=== PATIENT | male | born 1985 | race Caucasian/White ===

== ENCOUNTER → 2017-10-20 | Outpatient (CLI) | payer OTHER ==
[~2017-10-20] MED LIST: ACYC-50 PO; NO ROUTINE MEDS; ONDA4TAB PO; PRE20 PO
--- NOTE | 2017-10-20 13:42 | RADIOLOGY IMAGING REPORT ---
[facility] PATIENT NAME: Man Rodriguez : 1985 MR: [id number] V: [id number] EXAM DATE: ORDERING PHYSICIAN: CHANDA COSTELLO TECHNOLOGIST: Location: [facility] [place] Patient: Man Rodriguez : 1985 Visit/Account:[id number] Date of Sevice: 10/20/2017 TESTICULAR HISTORY: Lump in left scrotum COMPARISON: None. FINDINGS: Testes: The right testicle measures 4.2 x 2.1 x 3.1 cm the left testicle measures 4.3 x 2.2 x 2.7 cm. Symmetric and unremarkable blood flow documented by color and Duplex Doppler ultrasound. Epididymides: The head of the epididymis on the right measures 1.3 cm. There is a 1.3 cm cyst in the head epididymis on the right. The head epididymis on the left measures 1.4 cm Blood flow is unrema rkable in each epididymis by color Doppler ultrasound. There is a 2.7 mm echogenic structure within the mid right testicle possibly a calcification. Also noted is a 1.6 mm echogenic structure inferior left testicle represent an additional calcification. Hydrocele: None. Varicocele: Images were taken over the anterior left scrotum in location of patient's palpable findings. There w as a very subtle 2.4 mm hypoechoic structure in this location which may represent a skin lesion. IMPRESSION: Very subtle 2.4 mm hypoechoic structure along the anterior wall of the left scrotum in location of pa tient's palpable findings which may represent a skin lesion Small calcification seen in both testes 1.3 cm cyst had epididymis on the right Report Dictated By: Liana Manning MD at 10/20/2017 1:33 PM Report E-Signed By: Liana Manning MD at 10/20/2017 1:36 PM WSN:[email or web address]
== END ==
LOC: US 01:11
PROVIDERS: ATTEND Urology
DX: N50.3 Cyst of epididymis (principal); N50.89 Other specified disorders of the male genital organs
CPT/HCPCS: 76870

== ENCOUNTER 2017-11-01 02:49 | Day surgery (SDC) | payer OTHER ==
[~2017-11-01] VITALS: Ht 177.8 cm; Wt 93.9 kg
[2017-11-01] MEDS ORDERED: DEXAMETHASONE SOD PHOS 10MG/ML ONE (06:35)
[2017-11-01] MEDS ORDERED: LIDOCAINE MPF 1% 5 ML VIAL ONE (06:35)
[2017-11-01] MEDS ORDERED: PROPOFOL EMUL(*) 10MG/ML 20 ML 20 ML ONE ×2 (06:35→08:34)
[2017-11-01] MEDS ORDERED: METOCLOPRAMIDE 10 MG/2 ML SDV ONE (06:35)
[2017-11-01] MEDS ORDERED: ONDANSETRON 4 MG/2 ML VIAL ONE (06:35)
[2017-11-01] MEDS ORDERED: fentaNYL CITR 100 MCG/2 ML AMP ONE ×2 (06:37→09:07)
[2017-11-01 07:17] VITALS: BP 122/77
[2017-11-01] MEDS ORDERED: ceFAZolin(*) 2GM/D5W 50ML 50 ML IVPB ONE (07:40)
[2017-11-01] MEDS ORDERED: NORMOSOL R SOLN(*) 1000 ML BAG 1,000 ML IV PRN (08:15)
[2017-11-01] MEDS ORDERED: LIDOCAINE/SOD BICARB 8.4% SYR ID ONE (08:15)
[2017-11-01] MEDS ORDERED: MIDAZOLAM 2 MG/2 ML VIAL IVP PRN (08:15)
[2017-11-01] MEDS ORDERED: FAMOTIDINE 20 MG TAB PO ONE (08:15)
[2017-11-01] MEDS ORDERED: ROCURONIUM BROM 10 MG/ML 10 ML ONE (08:35)
[2017-11-01] MEDS ORDERED: AMOX500T10 PO (09:08)
[2017-11-01] MEDS ORDERED: OXYC-865 PO (09:10)
[2017-11-01] MEDS ORDERED: ONDA4TAB PO (09:11)
[2017-11-01] MEDS ORDERED: LIDOCAINE 2% VISCOUS PO (09:28)
[2017-11-01 09:42] VITALS: BP 121/77
--- NOTE | 2017-11-01 09:50 | OPERATIVE REPORT 1 ---
EVENT DATE: November 01, 2017 SURGEON: Bryan Rubio MD ANESTHESIOLOGIST: Juan Alberto Hernandes MD ANESTHESIA: LMA PROCEDURE Tonsillectomy. PREOPERATIVE DIAGNOSIS Tonsillar hypertrophy. POSTOPERATIVE DIAGNOSIS Tonsillar hypertrophy. INDICATIONS Please refer to the preoperative note. DESCRIPTION OF PROCEDURE The patient was positively identified in the preoperative area. He was accompanied there by his . Risks were again explained, including but not limited to, bleeding, infection, and those associated with anesthesia. He acknowledged understanding of those risks. He was then brought back to the operative suite, laid supine on the operative table, and anesthesia was administered. Once asleep, the patient was positioned, then prepped and draped in usual sterile fashion. A McIvor mouth gag was placed in the patient's oral cavity. Red rubber catheter was placed through the right nostril and utilized to suspend the soft palate. The patient was noted to have 3+ tonsils. The right tonsil was grasped with a curved Allis forceps and carefully dissected from the lateral pharyngeal wall with Bovie electrocautery. In a similar fashion, the contralateral tonsil was removed. Hemostasis was then obtained with suction Bovie electrocautery. The patient was then turned to anesthesia for emergence. ESTIMATED BLOOD LOSS 25 mL. COMPLICATIONS No complications. MTDD
[2017-11-01 09:58] VITALS: BP 137/81
[2017-11-01 10:00] VITALS: BP 123/85
[2017-11-02] MEDS ORDERED: METH4TAB66 PO (10:21)
[2017-11-02] MEDS ORDERED: METH125V13 IM (10:32)
== END 2017-11-01 09:42 | disposition home or self-care (01) ==
LOC: OR 02:49
PROVIDERS: ATTEND Otolaryngology
DX: J35.1 Hypertrophy of tonsils (principal)
CPT/HCPCS: 42826; 88304; J1100; J2001; J2405; J2704; J2765; J3010; J0690

== ENCOUNTER 2018-10-04 04:27 | Emergency (ER) | payer OTHER ==
[~2018-10-04 04:27] MED LIST changes: +AMOX500T10 PO; +LIDOCAINE 2% VISCOUS PO; +METH125V13 IM; +METH4TAB66 PO; +OXYC-865 PO
--- NOTE | 2018-10-04 04:35 | ER Report ---
History and Physical Time Seen By MD: 04:35 HPI/ROS CHIEF COMPLAINT: Right flank and groin pain HISTORY OF PRESENT ILLNESS: This is a 33-year-old male. He started having pain tonight and the right flank that then moved into the right groin. Seem to come and go and is very severe. On arrival in the ER the pain is now gone. No fevers or chills. No dysuria. Family history of kidney stones but he is never had a stone before. No problem with bowels. Allergies: Coded Allergies: No Known Drug Allergies (Verified , 10/22/17) Home Meds No Active Prescriptions or Reported Meds Reviewed Nurses Notes: Yes Hx Smoking: No Smoking Status: Never Smoker Hx Substance Use Disorder: No Hx Alcohol Use: No Constitutional Vital Sign - Last 24 Hours 10/04/18 10/04/18 10/04/18 10/04/18 04:33 04:42 05:07 05:12 Temp 97.8 Pulse 59 54 54 Resp 16 B/P (MAP) 138/101 117/87 (97) Pulse Ox 90 93 91 O2 Delivery Room Air 10/04/18 10/04/18 05:27 05:30 Pulse 53 B/P (MAP) 126/84 (98) Pulse Ox 96 Physical Exam General Appearance: The patient is alert. No acute distress. Eyes: Pupils are equal, round. No pallor, injection or icterus. ENT: Mucous membranes are moist. Respiratory: Breathing easily and unlabored. Cardiovascular: Regular rate and rhythm. Gastrointestinal: Abdomen is soft, no tenderness with palpation. Nondistended. No rebound or guarding. No costovertebral angle tenderness with percussion. Neurological: Alert and oriented x3. DIFFERENTIAL DIAGNOSIS: After history and physical exam, differential diagnosis was considered for patient with flank pain that sounds more like a kidney stone. Pain is now gone. Medical Decision Making Data Points Result Diagram: 10/04/189 10/04/18 0439 Laboratory Hematology Test 10/04/18 04:31 10/04/18 04:39 Urine Color Yellow Urine Clarity Slightly-cloudy Urine pH 5.0 pH (4.8-9.5) Urine Specific [place] 1.027 Urine Protein 30 mg/dL (NEGATIVE) Urine Glucose (UA) Negative mg/dL (NEGATIVE) Urine Ketones Negative mg/dL (NEGATIVE) Urine Blood Large (NEGATIVE) Urine Nitrite Negative (NEGATIVE) Urine Bilirubin Negative (NEGATIVE) Urine Urobilinogen Negative mg/dL (0.2-1.9) Urine Leukocyte Esterase Negative (NEGATIVE) Urine RBC 322 /HPF (0-2/HPF) Urine WBC 8 /HPF (0-5/HPF) Urine Squamous Epithelial Cells Few /LPF (</=FEW) Urine Transitional Epithelial Cells Few /LPF (NONE-FEW) Urine Calcium Oxalate Crystals Moderate /HPF (NONE) Urine Bacteria Negative /HPF (NONE-FEW) Urine Hyaline Casts Few /LPF (NONE-FEW) Urine Mucus Few /HPF (NONE-FEW) Red Blood Count 5.41 M/uL (4.00-5.60) Mean Corpuscular Volume 84.4 fL (80.0-96.0) Mean Corpuscular Hemoglobin 29.5 pg (26.0-33.0) Mean Corpuscular Hemoglobin Concent 35.0 g/dL (32.0-36.0) Red Cell Distribution Width 13.0 % (11.5-14.5) Mean Platelet Volume 10.1 fL (7.2-11.1) Neutrophils (%) (Auto) 59.6 % (39.4-72.5) Lymphocytes (%) (Auto) 31.9 % (17.6-49.6) Monocytes (%) (Auto) 6.7 % (4.1-12.4) Eosinophils (%) (Auto) 1.4 % (0.4-6.7) Basophils (%) (Auto) 0.4 % (0.3-1.4) Nucleated RBC Relative Count (auto) 0.1 /100WBC Neutrophils # (Auto) 3.5 K/uL (2.0-7.4) Lymphocytes # (Auto) 1.9 K/uL (1.3-3.6) Monocytes # (Auto) 0.4 K/uL (0.3-1.0) Eosinophils # (Auto) 0.1 K/uL (0.0-0.5) Basophils # (Auto) 0.0 K/uL (0.0-0.1) Nucleated RBC Absolute Count (auto) 0.00 K/uL Sodium Level 141 mmol/L (137-145) Potassium Level 3.7 mmol/L (3.5-5.0) Chloride Level 104 mmol/L (98-107) Carbon Dioxide Level 27 mmol/L (22-30) Blood Urea Nitrogen 15 mg/dl (9-21) Creatinine 1.40 mg/dl (0.66-1.25) Glomerular Filtration Rate Calc 58.4 Random Glucose 107 mg/dl (75-110) Calcium Level 9.2 mg/dl (8.4-10.2) Total Bilirubin 0.4 mg/dl (0.2-1.3) Aspartate Amino Transf (AST/SGOT) 29 U/L (0-35) Alanine Aminotransferase (ALT/SGPT) 36 U/L (0-56) Alkaline Phosphatase 77 U/L (0-126) Total Protein 7.8 g/dl (6.3-8.2) Albumin 4.8 g/dl (3.5-5.0) Chemistry Test 10/04/18 04:31 10/04/18 04:39 Urine Color Yellow Urine Clarity Slightly-cloudy Urine pH 5.0 pH (4.8-9.5) Urine Specific [place] 1.027 Urine Protein 30 mg/dL (NEGATIVE) Urine Glucose (UA) Negative mg/dL (NEGATIVE) Urine Ketones Negative mg/dL (NEGATIVE) Urine Blood Large (NEGATIVE) Urine Nitrite Negative (NEGATIVE) Urine Bilirubin Negative (NEGATIVE) Urine Urobilinogen Negative mg/dL (0.2-1.9) Urine Leukocyte Esterase Negative (NEGATIVE) Urine RBC 322 /HPF (0-2/HPF) Urine WBC 8 /HPF (0-5/HPF) Urine Squamous Epithelial Cells Few /LPF (</=FEW) Urine Transitional Epithelial Cells Few /LPF (NONE-FEW) Urine Calcium Oxalate Crystals Moderate /HPF (NONE) Urine Bacteria Negative /HPF (NONE-FEW) Urine Hyaline Casts Few /LPF (NONE-FEW) Urine Mucus Few /HPF (NONE-FEW) White Blood Count 5.9 k/uL (4.5-11.0) Red Blood Count 5.41 M/uL (4.00-5.60) Hemoglobin 16.0 g/dL (14.0-18.0) Hematocrit 45.6 % (42.0-52.0) Mean Corpuscular Volume 84.4 fL (80.0-96.0) Mean Corpuscular Hemoglobin 29.5 pg (26.0-33.0) Mean Corpuscular Hemoglobin Concent 35.0 g/dL (32.0-36.0) Red Cell Distribution Width 13.0 % (11.5-14.5) Platelet Count 176 K/uL (150-450) Mean Platelet Volume 10.1 fL (7.2-11.1) Neutrophils (%) (Auto) 59.6 % (39.4-72.5) Lymphocytes (%) (Auto) 31.9 % (17.6-49.6) Monocytes (%) (Auto) 6.7 % (4.1-12.4) Eosinophils (%) (Auto) 1.4 % (0.4-6.7) Basophils (%) (Auto) 0.4 % (0.3-1.4) Nucleated RBC Relative Count (auto) 0.1 /100WBC Neutrophils # (Auto) 3.5 K/uL (2.0-7.4) Lymphocytes # (Auto) 1.9 K/uL (1.3-3.6) Monocytes # (Auto) 0.4 K/uL (0.3-1.0) Eosinophils # (Auto) 0.1 K/uL (0.0-0.5) Basophils # (Auto) 0.0 K/uL (0.0-0.1) Nucleated RBC Absolute Count (auto) 0.00 K/uL Glomerular Filtration Rate Calc 58.4 Calcium Level 9.2 mg/dl (8.4-10.2) Total Bilirubin 0.4 mg/dl (0.2-1.3) Aspartate Amino Transf (AST/SGOT) 29 U/L (0-35) Alanine Aminotransferase (ALT/SGPT) 36 U/L (0-56) Alkaline Phosphatase 77 U/L (0-126) Total Protein 7.8 g/dl (6.3-8.2) Albumin 4.8 g/dl (3.5-5.0) Urinalysis Test 10/04/18 04:31 Urine Color Yellow Urine Clarity Slightly-cloudy Urine pH 5.0 pH (4.8-9.5) Urine Specific [place] 1.027 Urine Protein 30 mg/dL (NEGATIVE) Urine Glucose (UA) Negative mg/dL (NEGATIVE) Urine Ketones Negative mg/dL (NEGATIVE) Urine Blood Large (NEGATIVE) Urine Nitrite Negative (NEGATIVE) Urine Bilirubin Negative (NEGATIVE) Urine Urobilinogen Negative mg/dL (0.2-1.9) Urine Leukocyte Esterase Negative (NEGATIVE) Urine RBC 322 /HPF (0-2/HPF) Urine WBC 8 /HPF (0-5/HPF) Urine Squamous Epithelial Cells Few /LPF (</=FEW) Urine Transitional Epithelial Cells Few /LPF (NONE-FEW) Urine Calcium Oxalate Crystals Moderate /HPF (NONE) Urine Bacteria Negative /HPF (NONE-FEW) Urine Hyaline Casts Few /LPF (NONE-FEW) Urine Mucus Few /HPF (NONE-FEW) EKG/Imaging Imaging COMPUTED TOMOGRAPHY ABDOMEN AND PELVIS WITH INTRAVENOUS CONTRAST DATE OF EXAM: 10/04/2018 4:40 AM INDICATION: Right flank pain. COMPARISON: CT abdomen and pelvis 09/13/2011. TECHNIQUE: Contrast enhanced abdomen and pelvis CT performed during the injection of 75 ml of Isovue 370. Sagittal and coronal reconstructions were performed. One of the following dose optimization techniques was utilized in the performance of this exam: Automated exposure control; adjustment of the mA and/or kV according to the patient's size; or use of an iterative reconstruction technique. Specific details can be referenced in the facility's radiology CT exam operational policy. FINDINGS: Lung bases: Minimal atelectasis. Liver and hepatic vasculature: 5 mm hypoattenuating lesion in segment IVb likely represents a cyst. No acute abnormality or suspicious lesion. The right lobe is mildly enlarged, similar to prior. Gallbladder and bile ducts: Normal. Spleen: Mild hepatomegaly similar to prior. Pancreas: Normal. Adrenals: Normal. Kidneys, ureters and bladder: No acute abnormality or suspicious lesion. Retroperitoneum and aorta: Normal aorta. No adenopathy. Benign-appearing cystic lesion posterior to the left kidney measures 8.6 x 5.7 cm in the axial plane compared to approximately 6.5 x 4.6 cm on the prior exam. It measures simple fluid density and has no obvious enhancing components, septa or nodularity. It does not clearly arise from any of the adjacent solid organs. GI tract, mesentery and peritoneum: Moderate amount of stool in the colon. No evidence of obstruction. No pneumatosis, pneumoperitoneum or significant free fluid. Normal appendix. Prostate and seminal vesicles: Normal. Bones and soft tissues: No acute abnormality or suspicious lesion. Small fat- containing umbilical hernia. IMPRESSION: 1. Moderate amount of stool in the colon, question constipation. 2. Simple appearing cystic structure posterior to the left kidney has mildly increased in size compared to 2012, indicating probable benign etiology. It does not clearly arise from any of the adjacent solid organs. Seroma and lymphocele are potential differential considerations. Report Dictated By: Damir Bustamante MD at 10/04/2018 5:25 AM ED Course/Re-evaluation Clinical Indication for ER IV: IV Access ED Course Suspect that the patient had a kidney stone that has passed. blood in urine on urinalysis. Negative CT scan at this time. Flomax given after eval, but no other meds needed at this time as he is symptom free now. Decision to Disposition Date: Oct 04, 2018 Decision to Disposition Time: 06:00 Depart Departure Latest Vital Signs Vital Signs Date Time Temp Pulse Resp B/P (MAP) Pulse Ox O2 Delivery O2 Flow Rate FiO2 10/04/18 05:30 126/84 (98) 10/04/18 05:27 53 96 10/04/18 04:33 97.8 16 Room Air Impression: Primary Impression: Kidney stone Condition: Improved Disposition: HOME OR SELF-CARE New Scripts No Active Prescriptions or Reported Meds Patient Instructions: Kidney Stones (ED) Additional Instructions: We suspect that you had a stone that has passed. ALEXSANDER HOUSER MD Oct 04, 2018 04:36
[2018-10-04] MEDS ORDERED: HYDROMORPHONE HCL 1 MG/ML SYRINGE IVP ONE (04:40)
[2018-10-04] MEDS ORDERED: NS(*) 0.9% 1000 ML BAG 1,000 ML IV ONE (04:40)
[2018-10-04] MEDS ORDERED: KETOROLAC 30 MG/ML VIAL IVP ONE (04:40)
[2018-10-04] MEDS ORDERED: TAMSULOSIN HCL 0.4 MG CAP PO ONE (04:40)
[2018-10-04] MEDS ORDERED: ONDANSETRON 4 MG/2 ML VIAL IVP ONE (04:40)
[2018-10-04 04:52] LABS: PLATELET COUNT, AUTOMATED 176 K/uL (150-450)
[2018-10-04] MEDS ORDERED: IOPAMIDOL 76% 100 ML INFUS BTL 100 ML ONE (04:56)
[2018-10-04 05:30] VITALS: BP 126/84
--- NOTE | 2018-10-04 05:43 | RADIOLOGY IMAGING REPORT ---
FACILITY: [facility] PATIENT NAME: Man Rodriguez : 1985 MR: [id number] V: [id number] EXAM DATE: [id number] ORDERING PHYSICIAN: ALEXSANDER HOUSER TECHNOLOGIST: Location: [facility] Patient: Man Rodriguez : 1985 Visit/Account:[id number] Date of Sevice: 10/04/2018 COMPUTED TOMOGRAPHY ABDOMEN AND PELVIS WITH INTRAVENOUS CONTRAST DATE OF EXAM: 10/04/2018 4:40 AM INDICATION: Right flank pain. COMPARISON: CT abdomen and pelvis 09/13/2011. TECHNIQUE: Contrast enhanced abdomen and pelvis CT performed during the injection of 75 ml of Isovue 370. Sagittal and coronal reconstructions were performed. One of the following dose optimization te chniques was utilized in the performance of this exam: Automated exposure control; adjustment of the mA and/or kV according to the patient's size; or use of an iterative reconstruction technique. Spec [facility] details can be referenced in the facility's radiology CT exam operational policy. FINDINGS: Lung bases: Minimal atelectasis. Liver and hepatic vasculature: 5 mm hypoattenuating lesion in segment IVb likely represents a cyst. No acute abnormality or suspicious lesion. The right lobe is mildly enlarged, similar to prior. Gallbladder and bile ducts: Normal. Spleen: Mild hepatomegaly similar to prior. Pancreas: Normal. Adrenals: Normal. Kidneys, ureters and bladder: No acute abnormality or suspicious lesion. Retroperitoneum and aorta: Normal aorta. No adenopathy. Benign-appearing cystic lesion posterior t o the left kidney measures 8.6 x 5.7 cm in the axial plane compared to approximately 6.5 x 4.6 cm on the prior exam. It measures simple fluid density and has no obvious enhancing components, septa or n odularity. It does not clearly arise from any of the adjacent solid organs. GI tract, mesentery and peritoneum: Moderate amount of stool in the colon. No evidence of obstructi on. No pneumatosis, pneumoperitoneum or significant free fluid. Normal appendix. Prostate and seminal vesicles: Normal. Bones and soft tissues: No acute abnormality or suspicious lesion. Small fat-containing umbilical h ernia. IMPRESSION: 1. Moderate amount of stool in the colon, question constipation. 2. Simple appearing cystic structure posterior to the left kidney has mildly increased in size [place] red to 2012, indicating probable benign etiology. It does not clearly arise from any of the adjacent solid organs. Seroma and lymphocele are potential differential considerations. Report Dictated By: Damir Bustamante MD at 10/04/2018 5:25 AM Report E-Signed By: Damir Bustamante MD at 10/04/2018 5:40 AM WSN:[id number]
== END 2018-10-04 06:09 | disposition home or self-care (01) ==
LOC: ER 04:49
DX: N20.0 Calculus of kidney (principal)
CPT/HCPCS: 74177; 81001; 85025; 99284; Q9967; 82040; 82247; 82310; 82374; 82435; 82565; 82947; 84075; 84132; 84155; 84295; 84450; 84460; 84520

== ENCOUNTER 2018-10-07 10:05 | Emergency (ER) | payer OTHER ==
[2018-10-07] MEDS ORDERED: NS(*) 0.9% 500 ML BAG 500 ML IV ONE (10:07)
[2018-10-07] MEDS ORDERED: ONDANSETRON 4 MG/2 ML VIAL IVP ONE (10:10)
[2018-10-07] MEDS ORDERED: HYDROMORPHONE HCL 1 MG/ML SYRINGE IVP ONE ×2 (10:10→10:55)
--- NOTE | 2018-10-07 10:18 | ER Report ---
History and Physical Time Seen By MD: 10:15 Hx. of Stated Complaint: PT FROM DR. VILLEDA'S OFFICE. PT DIAGNOSED WITH KIDNEY STONE WEDNESDAY, PT REPORTS PAIN RETURNED THIS MORNING ~0700 ON R FLANK HPI/ROS CHIEF COMPLAINT: Right flank pain HISTORY OF PRESENT ILLNESS: Patient is a 33-year-old male who is referred from the office of , patient was seen earlier in the emergency department on October 04 right-sided pedal colic was found to have a kidney stone,. Patient was discharged essentially pain-free at that time and was doing well until this morning when he developed again severe right-sided flank pain. Currently 6 out of 10 in intensity. Was seen in the office of , a urine sample was provided but is still pending results. He was given Toradol for pain but because the pain persisted he was sent to the emergency department for further evaluation. Denies fevers or chills. He denies any headaches or body aches. REVIEW OF SYSTEMS: Constitutional: No fever, no chills. Eyes: No discharge. ENT: No sore throat. Cardiovascular: No chest pain, no palpitations. Respiratory: No cough, no shortness of breath. Gastrointestinal: Right flank pain, nausea Genitourinary: No hematuria. Musculoskeletal: No back pain. Skin: No rashes. Neurological: No headache. Allergies: Coded Allergies: No Known Drug Allergies (Verified , 10/22/17) Home Meds Active Scripts Tamsulosin Hcl (FLOMAX) 0.4 Mg Cap.er.24h, 0.4 MG PO DAILY for 7 Days, #7 CAP Prov:YAMINI GALLAGHER MD 10/07/18 Ondansetron Hcl (ZOFRAN) 4 Mg Tablet, 4 MG PO Q12H for 3 Days, #6 TAB Prov:YAMINI GALLAGHER MD 10/07/18 Oxycodone Hcl/Acet 5/325 Mg (ENDOCET 5-325 TABLET) 1 Each Tablet, 1 EACH PO Q4- 6H for 7 Days, #14 TAB Prov:YAMINI GALLAGHER MD 10/07/18 Past Medical/Surgical History History of kidney stones Hx Smoking: No Smoking Status: Never Smoker Hx Substance Use Disorder: No Hx Alcohol Use: No Constitutional Vital Sign - Last 24 Hours 10/07/18 10/07/18 10/07/18/1/19 10:05 10:15 10:20 10:30 Temp 97.5 Pulse 44 48 47 Resp 16 B/P (MAP) 148/98 138/94 (109) 131/87 (102) Pulse Ox 95 95 97 O2 Delivery Room Air O2 Flow Rate 2.0 10/07/18 10/07/18 10/07/18 10/07/18 10:45 11:00 11:15 11:30 Pulse 49 48 45 49 B/P (MAP) 124/97 (106) 143/94 (110) 110/70 (83) 128/90 (103) Pulse Ox 97 98 98 97 10/07/18 10/07/18 10/07/18 10/07/18 11:35 11:45 11:50 12:00 Pulse 52 45 48 B/P (MAP) 114/69 (84) 128/90 (103) Pulse Ox 97 98 98 10/07/18 10/07/18 12:15 12:30 Pulse 42 59 B/P (MAP) 123/79 (94) Pulse Ox 97 100 Physical Exam General Appearance: The patient is alert, has no immediate need for airway protection and no signs of toxicity. Eyes: Pupils equal and round no pallor or injection. ENT, Mouth: Mucous membranes are moist. Respiratory: There are no retractions, lungs are clear to auscultation. Cardiovascular: Regular rate and rhythm. Gastrointestinal: Abdomen is soft and non tender, no masses, bowel sounds normal. Neurological: Awake and alert Skin: Warm and dry, no rashes. Musculoskeletal: Neck is supple non tender. Extremities are nontender, nonswollen and have full range of motion. Medical Decision Making Data Points Result Diagram: 10/07/18 1011 Laboratory Hematology Test 10/07/18 00:00 10/07/18 10:11 Total Bilirubin 0.6 mg/dl (0.2-1.3) Direct Bilirubin 0.2 mg/dl (0.0-0.3) Aspartate Amino Transf (AST/SGOT) 32 U/L (0-35) Alanine Aminotransferase (ALT/SGPT) 39 U/L (0-56) Alkaline Phosphatase 82 U/L (0-126) Total Protein 7.9 g/dl (6.3-8.2) Albumin 4.9 g/dl (3.5-5.0) Red Blood Count 5.64 M/uL (4.00-5.60) Mean Corpuscular Volume 84.1 fL (80.0-96.0) Mean Corpuscular Hemoglobin 29.5 pg (26.0-33.0) Mean Corpuscular Hemoglobin Concent 35.1 g/dL (32.0-36.0) Red Cell Distribution Width 13.3 % (11.5-14.5) Mean Platelet Volume 10.2 fL (7.2-11.1) Neutrophils (%) (Auto) 74.0 % (39.4-72.5) Lymphocytes (%) (Auto) 18.4 % (17.6-49.6) Monocytes (%) (Auto) 6.6 % (4.1-12.4) Eosinophils (%) (Auto) 0.6 % (0.4-6.7) Basophils (%) (Auto) 0.4 % (0.3-1.4) Nucleated RBC Relative Count (auto) 0.1 /100WBC Neutrophils # (Auto) 4.1 K/uL (2.0-7.4) Lymphocytes # (Auto) 1.0 K/uL (1.3-3.6) Monocytes # (Auto) 0.4 K/uL (0.3-1.0) Eosinophils # (Auto) 0.0 K/uL (0.0-0.5) Basophils # (Auto) 0.0 K/uL (0.0-0.1) Nucleated RBC Absolute Count (auto) 0.01 K/uL Chemistry Test 10/07/18 00:00 10/07/18 10:11 Total Bilirubin 0.6 mg/dl (0.2-1.3) Direct Bilirubin 0.2 mg/dl (0.0-0.3) Aspartate Amino Transf (AST/SGOT) 32 U/L (0-35) Alanine Aminotransferase (ALT/SGPT) 39 U/L (0-56) Alkaline Phosphatase 82 U/L (0-126) Total Protein 7.9 g/dl (6.3-8.2) Albumin 4.9 g/dl (3.5-5.0) White Blood Count 5.5 k/uL (4.5-11.0) Red Blood Count 5.64 M/uL (4.00-5.60) Hemoglobin 16.6 g/dL (14.0-18.0) Hematocrit 47.4 % (42.0-52.0) Mean Corpuscular Volume 84.1 fL (80.0-96.0) Mean Corpuscular Hemoglobin 29.5 pg (26.0-33.0) Mean Corpuscular Hemoglobin Concent 35.1 g/dL (32.0-36.0) Red Cell Distribution Width 13.3 % (11.5-14.5) Platelet Count 180 K/uL (150-450) Mean Platelet Volume 10.2 fL (7.2-11.1) Neutrophils (%) (Auto) 74.0 % (39.4-72.5) Lymphocytes (%) (Auto) 18.4 % (17.6-49.6) Monocytes (%) (Auto) 6.6 % (4.1-12.4) Eosinophils (%) (Auto) 0.6 % (0.4-6.7) Basophils (%) (Auto) 0.4 % (0.3-1.4) Nucleated RBC Relative Count (auto) 0.1 /100WBC Neutrophils # (Auto) 4.1 K/uL (2.0-7.4) Lymphocytes # (Auto) 1.0 K/uL (1.3-3.6) Monocytes # (Auto) 0.4 K/uL (0.3-1.0) Eosinophils # (Auto) 0.0 K/uL (0.0-0.5) Basophils # (Auto) 0.0 K/uL (0.0-0.1) Nucleated RBC Absolute Count (auto) 0.01 K/uL ED Course/Re-evaluation ED Course 10/07/2018 10:17:47 am At this time will be to place an IV we will get IV pain medications in the form of Dilaudid and we'll give IV Zofran for nausea. We'll check CBC basic metabolic panel also check renal ultrasound. 10/07/2018 10:56:16 am and had initial improvement in pain which is now returning I will give Milligram of IV Dilaudid awaiting results of lab work and ultrasound. 10/07/2018 12:55:23 pm patient's pain is well-controlled 0 out of 10 currently. I did speak with , guarding ED course he agrees with discharge home at this time sent home with urine strainer he was already prescribed Percocet as well as Flomax. Patient also instructed to take nonsteroidal pain medicine such as ibuprofen or Aleve as directed for the next 24 hours. Decision to Disposition Date: Oct 07, 2018 Decision to Disposition Time: 12:55 Depart Departure Latest Vital Signs Vital Signs Date Time Temp Pulse Resp B/P (MAP) Pulse Ox O2 Delivery O2 Flow Rate FiO2 10/07/18 12:30 59 100 10/07/18 12:15 123/79 (94) 10/07/18 10:20 2.0 10/07/18 10:05 97.5 16 Room Air Impression: Primary Impression: Kidney stone Condition: Improved Disposition: HOME OR SELF-CARE Patient Instructions: Kidney Stones (ED) Additional Instructions: Take your prescriptions as directed. Return to the emergency department any time if he develops fever, pain that is not controlled with your pain prescriptions protracted vomiting or worsening abd ominal pain. DEBRA TRINH MD Oct 07, 2018 10:18
[2018-10-07 10:31] LABS: PLATELET COUNT, AUTOMATED 180 K/uL (150-450)
[2018-10-07] MEDS ORDERED: NS(*) 0.9% 1000 ML BAG 1,000 ML IV ONE (11:20)
[2018-10-07 12:15] VITALS: BP 123/79
--- NOTE | 2018-10-07 13:51 | RADIOLOGY IMAGING REPORT ---
FACILITY: [facility] PATIENT NAME: Man Rodriguez : 1985 MR: [id number] V: [id number] EXAM DATE: ORDERING PHYSICIAN: DEBRA TRINH TECHNOLOGIST: Location: [facility] Patient: Man Rodriguez : 1985 Visit/Account:[id number] Date of Sevice: 10/07/2018 KIDNEYS EXAMINATION: Renal ultrasound. History: Hematuria, kidney stone on Wednesday COMPARISON STUDIES: CT abdomen and pelvis 11/01/2018 FINDINGS: Kidneys: Right kidney- 11.1 x 5.5 x 6.3 cm Left kidney- 10.5 x 5.7 x 5.1 cm there is a 9.5 cm cystic structure just posterior to the left kidney Uniform and symmetric blood flow in each kidney by Doppler ultrasound. Hydronephrosis: Very mild pyelocaliectasis on the right Resistive index on the right 0.72 and on the left 0.72. Bladder: The patient was discharged from the ER before the full bladder images could be obtained Abdominal aorta and IVC: Aorta and IVC are patent by Doppler ultrasound. IMPRESSION: Very mild pyelocaliectasis on the right There is a 9.5 cm cystic structure just posterior to the left kidney similar to the recent CT scan Report Dictated By: Liana Manning MD at 10/07/2018 1:43 PM Report E-Signed By: Liana Manning MD at 10/07/2018 1:47 PM WSN:[id number]
== END 2018-10-07 13:02 | disposition home or self-care (01) ==
LOC: ER 10:19
DX: N20.0 Calculus of kidney (principal)
CPT/HCPCS: 76705; 85025; 96374; 96375; 96376; 99284; J1170; J2405; J7030; J7040; 82040; 82247; 82248; 84075; 84155; 84450; 84460; 96361

== ENCOUNTER → 2018-10-07 | Outpatient (CLI) | payer OTHER ==
[~2018-10-07] MED LIST changes: +KETO30CA16 IJ; +ONDA4TAB97 PO; +OXYC-854 PO; +TAMS0.4C25 PO
== END ==
LOC: LAB 09:33
PROVIDERS: ATTEND Urology
DX: N20.0 Calculus of kidney (principal)
CPT/HCPCS: 81001

== ENCOUNTER 2018-10-11 11:16 | Observation (INO) | payer OTHER ==
[~2018-10-11] VITALS: Ht 177.8 cm; Wt 100.8 kg
[2018-10-11] MEDS ORDERED: IBUP600T22 PO (11:33)
--- NOTE | 2018-10-11 11:52 | ER Report ---
History and Physical Time Seen By MD: 11:44 Hx. of Stated Complaint: Nausea and dizziness. Has been here 3 times recently for kidney stones. Following with Dr. Gallagher. On percocet, zofran and flomax HPI/ROS CHIEF COMPLAINT: Flank pain HISTORY OF PRESENT ILLNESS: 33 yo male presents to ED for recurrent right flank pain. C/O nausea without emesis. States he woke up early this morning with severe nausea, then took oxycodone, flomax and zofran and symptoms improved but recurred later with light headedness. reported mucoid discharge with urination. No rashes. No SOB or chest pain. REVIEW OF SYSTEMS: Constitutional: No fever, no chills. Eyes: No discharge. ENT: No sore throat. Cardiovascular: No chest pain, no palpitations. Respiratory: No cough, no shortness of breath. Gastrointestinal: Nausea. No abdominal pain, no vomiting. Genitourinary: As above. Musculoskeletal: As above Skin: No rashes. Neurological: No headache. Allergies: Coded Allergies: No Known Drug Allergies (Verified , 10/11/18) Home Meds Active Scripts Tamsulosin Hcl (FLOMAX) 0.4 Mg Cap.er.24h, 0.4 MG PO DAILY for 7 Days, #7 CAP Prov:YAMINI GALLAGHER MD 10/07/18 Ondansetron Hcl (ZOFRAN) 4 Mg Tablet, 4 MG PO Q12H for 3 Days, #6 TAB Prov:YAMINI GALLAGHER MD 10/07/18 Oxycodone Hcl/Acet 5/325 Mg (ENDOCET 5-325 TABLET) 1 Each Tablet, 1 EACH PO Q4- 6H for 7 Days, #14 TAB Prov:YAMINI GALLAGHER MD 10/07/18 Reported Medications Ibuprofen (IBUPROFEN) 600 Mg Tablet, 1 TAB PO Q6H, TAB 10/11/18 Past Medical/Surgical History Patient has a past medical and surgical history of Morris's palsy, kidney stone, pressure equalizing tubes as a child, tonsillectomy, shingles. Reviewed Nurses Notes: Yes Hx Smoking: No Smoking Status: Never Smoker Hx Substance Use Disorder: No Hx Alcohol Use: No Constitutional Vital Sign - Last 24 Hours 10/11/18 10/11/18 10/11/18 10/11/18 11:27 11:30 11:33 11:45 Temp 97.2 Pulse 51 57 57 Resp 16 B/P (MAP) 124/79 131/81 (98) Pulse Ox 91 94 94 10/11/18 10/11/18 10/11/18 12:00 12:15 12:30 Pulse 60 50 B/P (MAP) 134/84 (101) 118/77 (91) Pulse Ox 98 95 93 Physical Exam General Appearance: The patient is alert, has no immediate need for airway protection and no signs of toxicity. Eyes: Pupils equal and round no pallor or injection. ENT, Mouth: Mucous membranes are moist. Respiratory: There are no retractions, lungs are clear to auscultation. Cardiovascular: Regular rate and rhythm, no murmurs, clicks or rubs. Gastrointestinal: Abdomen is soft and non tender, no masses, bowel sounds normal. Skin: Warm and dry, no rashes. Musculoskeletal: Right CVA tenderness noted. Extremities are nontender, nonswollen and have full range of motion. DIFFERENTIAL DIAGNOSIS: After history and physical exam differential diagnosis was considered for Pyleonephritis, UTI, renal colic, constipation, gastroenteristis, pancreatitis Medical Decision Making Data Points Result Diagram: 10/11/18 1220 10/11/18 1220 Laboratory Hematology Test 10/11/18 11:35 10/11/18 12:20 Urine Color Yellow Urine Clarity Clear Urine pH 6.0 pH (4.8-9.5) Urine Specific Tamms 1.012 Urine Protein Negative mg/dL (NEGATIVE) Urine Glucose (UA) Negative mg/dL (NEGATIVE) Urine Ketones Negative mg/dL (NEGATIVE) Urine Blood Moderate (NEGATIVE) Urine Nitrite Negative (NEGATIVE) Urine Bilirubin Negative (NEGATIVE) Urine Urobilinogen Negative mg/dL (0.2-1.9) Urine Leukocyte Esterase Negative (NEGATIVE) Urine RBC <1 /HPF (0-2/HPF) Urine WBC 1 /HPF (0-5/HPF) Urine Squamous Epithelial Cells None /LPF (</=FEW) Urine Bacteria Negative /HPF (NONE-FEW) Urine Mucus None /HPF (NONE-FEW) Red Blood Count 4.81 M/uL (4.00-5.60) Mean Corpuscular Volume 84.3 fL (80.0-96.0) Mean Corpuscular Hemoglobin 29.9 pg (26.0-33.0) Mean Corpuscular Hemoglobin Concent 35.4 g/dL (32.0-36.0) Red Cell Distribution Width 13.2 % (11.5-14.5) Mean Platelet Volume 9.5 fL (7.2-11.1) Neutrophils (%) (Auto) 83.4 % (39.4-72.5) Lymphocytes (%) (Auto) 9.4 % (17.6-49.6) Monocytes (%) (Auto) 6.6 % (4.1-12.4) Eosinophils (%) (Auto) 0.3 % (0.4-6.7) Basophils (%) (Auto) 0.3 % (0.3-1.4) Nucleated RBC Relative Count (auto) 0.0 /100WBC Neutrophils # (Auto) 6.6 K/uL (2.0-7.4) Lymphocytes # (Auto) 0.7 K/uL (1.3-3.6) Monocytes # (Auto) 0.5 K/uL (0.3-1.0) Eosinophils # (Auto) 0.0 K/uL (0.0-0.5) Basophils # (Auto) 0.0 K/uL (0.0-0.1) Nucleated RBC Absolute Count (auto) 0.00 K/uL Sodium Level 138 mmol/L (137-145) Potassium Level 4.1 mmol/L (3.5-5.0) Chloride Level 101 mmol/L (98-107) Carbon Dioxide Level 30 mmol/L (22-30) Blood Urea Nitrogen 15 mg/dl (9-21) Creatinine 1.80 mg/dl (0.66-1.25) Glomerular Filtration Rate Calc 43.7 Random Glucose 78 mg/dl (75-110) Calcium Level 8.8 mg/dl (8.4-10.2) Total Bilirubin 0.4 mg/dl (0.2-1.3) Aspartate Amino Transf (AST/SGOT) 26 U/L (0-35) Alanine Aminotransferase (ALT/SGPT) 34 U/L (0-56) Alkaline Phosphatase 64 U/L (0-126) Total Protein 6.8 g/dl (6.3-8.2) Albumin 4.2 g/dl (3.5-5.0) Chemistry Test 10/11/18 11:35 10/11/18 12:20 Urine Color Yellow Urine Clarity Clear Urine pH 6.0 pH (4.8-9.5) Urine Specific Tamms 1.012 Urine Protein Negative mg/dL (NEGATIVE) Urine Glucose (UA) Negative mg/dL (NEGATIVE) Urine Ketones Negative mg/dL (NEGATIVE) Urine Blood Moderate (NEGATIVE) Urine Nitrite Negative (NEGATIVE) Urine Bilirubin Negative (NEGATIVE) Urine Urobilinogen Negative mg/dL (0.2-1.9) Urine Leukocyte Esterase Negative (NEGATIVE) Urine RBC <1 /HPF (0-2/HPF) Urine WBC 1 /HPF (0-5/HPF) Urine Squamous Epithelial Cells None /LPF (</=FEW) Urine Bacteria Negative /HPF (NONE-FEW) Urine Mucus None /HPF (NONE-FEW) White Blood Count 7.9 k/uL (4.5-11.0) Red Blood Count 4.81 M/uL (4.00-5.60) Hemoglobin 14.4 g/dL (14.0-18.0) Hematocrit 40.5 % (42.0-52.0) Mean Corpuscular Volume 84.3 fL (80.0-96.0) Mean Corpuscular Hemoglobin 29.9 pg (26.0-33.0) Mean Corpuscular Hemoglobin Concent 35.4 g/dL (32.0-36.0) Red Cell Distribution Width 13.2 % (11.5-14.5) Platelet Count 148 K/uL (150-450) Mean Platelet Volume 9.5 fL (7.2-11.1) Neutrophils (%) (Auto) 83.4 % (39.4-72.5) Lymphocytes (%) (Auto) 9.4 % (17.6-49.6) Monocytes (%) (Auto) 6.6 % (4.1-12.4) Eosinophils (%) (Auto) 0.3 % (0.4-6.7) Basophils (%) (Auto) 0.3 % (0.3-1.4) Nucleated RBC Relative Count (auto) 0.0 /100WBC Neutrophils # (Auto) 6.6 K/uL (2.0-7.4) Lymphocytes # (Auto) 0.7 K/uL (1.3-3.6) Monocytes # (Auto) 0.5 K/uL (0.3-1.0) Eosinophils # (Auto) 0.0 K/uL (0.0-0.5) Basophils # (Auto) 0.0 K/uL (0.0-0.1) Nucleated RBC Absolute Count (auto) 0.00 K/uL Glomerular Filtration Rate Calc 43.7 Calcium Level 8.8 mg/dl (8.4-10.2) Total Bilirubin 0.4 mg/dl (0.2-1.3) Aspartate Amino Transf (AST/SGOT) 26 U/L (0-35) Alanine Aminotransferase (ALT/SGPT) 34 U/L (0-56) Alkaline Phosphatase 64 U/L (0-126) Total Protein 6.8 g/dl (6.3-8.2) Albumin 4.2 g/dl (3.5-5.0) Urinalysis Test 10/11/18 11:35 Urine Color Yellow Urine Clarity Clear Urine pH 6.0 pH (4.8-9.5) Urine Specific Tamms 1.012 Urine Protein Negative mg/dL (NEGATIVE) Urine Glucose (UA) Negative mg/dL (NEGATIVE) Urine Ketones Negative mg/dL (NEGATIVE) Urine Blood Moderate (NEGATIVE) Urine Nitrite Negative (NEGATIVE) Urine Bilirubin Negative (NEGATIVE) Urine Urobilinogen Negative mg/dL (0.2-1.9) Urine Leukocyte Esterase Negative (NEGATIVE) Urine RBC <1 /HPF (0-2/HPF) Urine WBC 1 /HPF (0-5/HPF) Urine Squamous Epithelial Cells None /LPF (</=FEW) Urine Bacteria Negative /HPF (NONE-FEW) Urine Mucus None /HPF (NONE-FEW) EKG/Imaging Imaging PATIENT NAME: Man Rodriguez : 1985 MR: [id number] V: [id number] EXAM DATE: ORDERING PHYSICIAN: BASILIO LISA TECHNOLOGIST: Location: [facility] - [place] Patient: Man Rodriguez : 1985 Visit/Account:[id number] Date of Sevice: 10/11/2018 KUB SINGLE VIEW ABDOMEN HISTORY: Hx kidney stones Additional history: Right-sided flank pain COMPARISON: Comparison CT scan October 04, 2017 FINDINGS: On today's examination no radiodense stones are seen over the renal shadows or course of the ureters. However, in reviewing the previous CT scan there is a 3 mm calcification located in a tubular structure near the right ureterovesical junction. Given history of persistent flank pain this probably represents a nonobstructive small stone in the distal right ureter. Osseous structures normal. IMPRESSION: Radiographically this study is unremarkable. In the review of the CT scan I believe there probably is a nonobstructive 3 mm stone lodged in the distal right ureter which was not mentioned initially. Results were called to BASILIO LISA at 10/11/2018 12:52 PM. He confirms patient has had right flank pain persisting over the past week. I have recommended the CT. Report Dictated By: Seymour Arrieta MD at 10/11/2018 12:52 PM Report E-Signed By: Seymour Arrieta MD at 10/11/2018 1:06 PM WSN:[email or web address] ED Course/Re-evaluation ED Course Patient was admitted to room. A history of physical were obtained. Differential diagnoses were considered. An IV was started. A CBC, CMP, UA were collected. A 1 L normal saline bolus was given.Patient was given 4 mg IV Zofran, initially the patient declined pain medication, the patient continues to have underlying nausea, pain did begin 3 surface, patient was given 4 mg IV morphine and 12.5 mg Phenergan, patient did have relief of nausea and pain. I did a KUB which was negative for any acute findings. However I was speaking with the radiologist, they did recommend the original CT report addendum did say that there was a 3 mm stone in the distal right ureter. Did review this with the patient. I also spoke with patient's urologist Dr. Gallagher, he did come down and speak with patient, patient also he was admitted to the medical floor for pain control, he will also be taken to the OR tomorrow for stone retrieval. Patient was agreeable with this plan of care. 10/11/2018 1:40:[address] Gallagher, the patient's urologist, he will come and evaluate the patient's discuss possible options. Patient is aware. 10/11/2018 2:07:[address] Gallagher here to evaluate patient and recommended to admit patient for surgery. Patient is aware and agreeable. Decision to Disposition Date: Oct 11, 2018 Decision to Disposition Time: 14:10 Depart Departure Latest Vital Signs Vital Signs Date Time Temp Pulse Resp B/P (MAP) Pulse Ox O2 Delivery O2 Flow Rate FiO2 10/11/18 12:30 118/77 (91) 93 10/11/18 12:15 50 10/11/18 11:27 97.2 16 Impression: Primary Impression: Kidney stones Condition: Improved Disposition: Admitted from ER BASILIO LISA-TOBY Oct 11, 2018 11:52
[2018-10-11] MEDS ORDERED: NS(*) 0.9% 1000 ML BAG 1,000 ML IV ONE (12:10)
[2018-10-11] MEDS ORDERED: ONDANSETRON 4 MG/2 ML VIAL IVP ONE (12:10)
[2018-10-11 12:38] LABS: PLATELET COUNT, AUTOMATED 148 K/uL (150-450)
--- NOTE | 2018-10-11 13:11 | RADIOLOGY IMAGING REPORT ---
[place] [facility] [place]: Man Rodriguez : 1985 MR: [id number] V: [id number] EXAM DATE: ORDERING PHYSICIAN: BASILIO LISA TECHNOLOGIST: Location: [facility] [place] Patient: Man Rodriguez : 1985 Visit/Account:[id number] Date of Sevice: 10/11/2018 KUB SINGLE VIEW ABDOMEN HISTORY: Hx kidney stones Additional history: Right-sided flank pain COMPARISON: Comparison CT scan October 04, 2017 FINDINGS: On today's examination no radiodense stones are seen over the renal shadows or course of the ureters. However, in reviewing the previous CT scan there is a 3 mm calcification located in a tubular struc ture near the right ureterovesical junction. Given history of persistent flank pain this probably re presents a nonobstructive small stone in the distal right ureter. Osseous structures normal. IMPRESSION: Radiographically this study is unremarkable. In the review of the CT scan I believe there probably is a nonobstructive 3 mm stone lodged in the di stal right ureter which was not mentioned initially. Results were called to BASILIO LISA at 10/11/2018 12:52 PM. He confirms patient has had right fl ank pain persisting over the past week. I have recommended the CT. Report Dictated By: Seymour Arrieta MD at 10/11/2018 12:52 PM Report E-Signed By: Seymour Arrieta MD at 10/11/2018 1:06 PM WSN:[email or web address]
[2018-10-11] MEDS ORDERED: MORPHINE 4 MG/ML SDV IVP ONE (13:15)
[2018-10-11] MEDS ORDERED: PROMETHAZINE 25 MG/ML 1 ML AMP IVP ONE (13:15)
[2018-10-11 14:57] VITALS: BP 124/87
[2018-10-11] MEDS ORDERED: PROMETHAZINE 25 MG/ML 1 ML AMP IVP PRN (15:05)
[2018-10-11] MEDS ORDERED: NALOXONE HCL 0.4 MG/ML VIAL IVP PRN (15:05)
[2018-10-11] MEDS ORDERED: ACETAMINOPHEN 325 MG TAB PO PRN (15:05)
[2018-10-11] MEDS ORDERED: ONDANSETRON 4 MG/2 ML VIAL IVP PRN (15:05)
[2018-10-11] MEDS ORDERED: HYDROmorphone HCL 2 MG/ML SDV IVP PRN (15:10)
[2018-10-11] MEDS ORDERED: LEVOFLOXACIN/D5W*500 MG/100 ML 100 ML IVPB ONE (15:10)
[2018-10-11] MEDS: LR(*) 1000 ML BAG 1,000 ML IV PRN (15:56)
--- NOTE | 2018-10-11 17:49 | HISTORY AND PHYSICAL ---
DATE OF ADMISSION: October 11, 2018 CHIEF COMPLAINT Right renal colic. HISTORY OF PRESENT ILLNESS A 33-year-old male seen in the Emergency Room last week for acute renal colic and then again for recurrent colic. He came back to the Emergency Room today complaining of similar complaints that required parenteral narcotic to control. He had been taking Zofran, Flomax, and oxycodone with ibuprofen as needed, but his pain as well as nausea have persisted. PAST MEDICAL HISTORY Negative for chronic kidney disease. MEDICATIONS 1. Tamsulosin. 2. Zofran. 3. Percocet. ALLERGIES No known drug allergies. SOCIAL HISTORY Negative for tobacco or alcohol usage. REVIEW OF SYSTEMS Positive for episodic nausea, right flank pain. PHYSICAL EXAMINATION HEENT: Extraocular movements are intact. The sclerae are anicteric. HEART: Regular in rate and rhythm. LUNGS: Clear bilaterally. ABDOMEN: Soft. There is no guarding or rebound tenderness. There is right CVA tenderness. There is no suprapubic tenderness. GENITOURINARY: Penis and testes are normal. EXTREMITIES: Lower extremities have no pretibial edema. IMPRESSION Persistent/recurrent right renal colic secondary to distal ureteral stone. PLAN I reviewed the findings with the patient and his . He is failing medical expulsive therapy, and I have recommended that he have right ureteroscopic laser lithotripsy with stone extraction and stent placement. The nature of the procedure as well as the risks, the need for stent, and stent-related symptoms were all reviewed. We will look to schedule for the procedure 10/12/2018. MAGI
[2018-10-11 19:19] VITALS: BP 109/62
[2018-10-11] MEDS: DOCUSATE SODIUM 100 MG CAP PO SCH (21:03)
[2018-10-11] MEDS: FAMOTIDINE 20 MG TAB PO SCH (21:03)
[2018-10-12] MEDS: LR(*) 1000 ML BAG 1,000 ML IV PRN (01:08)
[2018-10-12] MEDS ORDERED: MIDAZOLAM 2 MG/2 ML VIAL IVP PRN (05:55)
[2018-10-12] MEDS ORDERED: NORMOSOL R SOLN(*) 1000 ML BAG 1,000 ML IV ONE (06:00)
[2018-10-12] MEDS ORDERED: FAMOTIDINE(*) 20MG/50ML PREMIX 50 ML IVPB ONE (06:00)
[2018-10-12 06:13] VITALS: BP 107/67
[2018-10-12] MEDS ORDERED: KETAMINE HCL-NS 50 MG/5 ML SYR ONE (07:11)
[2018-10-12] MEDS ORDERED: fentaNYL CITR 100 MCG/2 ML AMP ONE (07:11)
[2018-10-12] MEDS ORDERED: LIDOCAINE MPF 1% 5 ML VIAL ONE (07:12)
[2018-10-12] MEDS ORDERED: PROPOFOL EMUL(*) 10MG/ML 20 ML 0 ML ONE (07:12)
[2018-10-12] MEDS ORDERED: DEXAMETHASONE SOD PHOS 10MG/ML ONE (07:12)
[2018-10-12] MEDS ORDERED: ONDANSETRON 4 MG/2 ML VIAL ONE (07:12)
[2018-10-12] MEDS ORDERED: LIDOCAINE 2% IV 100 MG/5ML SYR ONE (07:13)
[2018-10-12 07:41] VITALS: BP 131/76
--- NOTE | 2018-10-12 07:51 | Urology Progress Note ---
Subjective Patient Complains of: Neurological: No: Syncope, Confusion, Weakness, Dizziness, Slurred Speech, Other Genitourinary: Hematuria Physical Exam Vital Signs Date Time Temp Pulse Resp B/P (MAP) Pulse Ox O2 Delivery O2 Flow Rate FiO2 10/12/18 07:41 98.0 65 18 131/76 (94) 93 Room Air 10/11/18 19:19 0.5 Intake and Output 10/12/18 06:59 Intake Total 2500 ml Output Total 950 ml Balance 1550 ml Intake Oral 500 ml IV Total 2000 ml Output Urine Total 950 ml # Voids 2 General Appearance: Alert, Awake, No Acute Distress Cardiovascular: Normal Rhythm & Peripheral Pulses Respiratory: No Respiratory Distress GI: Soft and Non-Tender : Normal, No CVA Tenderness Extremities: Soft and Non Tender Result Diagram: 10/11/18 1220 10/11/18 1220 Assessment and Plan Problems: (1) Kidney stone Status: Resolved Condition The patient developed severe urinary urgency prior to voiding last evening, then passed a small stone and had terminal gross hematuria. Since that time he says he feels the best that he has in a week. I reviewed the specimen and I think that he has passed the small distal right ureteral calculus. I've canceled his surgery scheduled for this morning. I'll send the stone for stone analysis He can go back on a regular diet and if he is feeling better later this morning I will discharge him. Time Spent: > 30 min Exam Sepsis Risk: No Definite Risk YAMINI GALLAGHER MD Oct 12, 2018 07:51
[2018-10-12] MEDS: FAMOTIDINE 20 MG TAB PO SCH (08:27)
[2018-10-12] MEDS: DOCUSATE SODIUM 100 MG CAP PO SCH (08:27)
[2018-10-12 08:55] VITALS: Ht 177.8 cm; Wt 100.8 kg
--- NOTE | 2018-10-12 09:59 | Urology Discharge Summary ---
Discharge Summary Reason for Hosp/Final Diag: (1) Kidney stone Status: Resolved Departure Weight (Pounds): 222 Weight (Ounces): 3.0 Result Diagram: 10/11/18 1220 10/11/18 1220 Condition: Improved Discharge Instructions Home Meds Active Scripts Tamsulosin Hcl (FLOMAX) 0.4 Mg Cap.er.24h, 0.4 MG PO DAILY for 7 Days, #7 CAP Prov:YAMINI GALLAGHER MD 10/07/18 Ondansetron Hcl (ZOFRAN) 4 Mg Tablet, 4 MG PO Q12H for 3 Days, #6 TAB Prov:YAMINI GALLAGHER MD 10/07/18 Oxycodone Hcl/Acet 5/325 Mg (ENDOCET 5-325 TABLET) 1 Each Tablet, 1 EACH PO Q4- 6H for 7 Days, #14 TAB Prov:YAMINI GALLAGHER MD 10/07/18 Reported Medications Ibuprofen (IBUPROFEN) 600 Mg Tablet, 1 TAB PO Q6H, TAB 10/11/18 Diet: Regular Activity: As Tolerated Venous Thromboembolism Antithrombotics Is Pt On Any Antithrombotics?: No YAMINI GALLAGHER MD Oct 12, 2018 09:59
[2018-10-12] MEDS ORDERED: INFLUENZA VIRUS VAC 0.5ML SYR IM ONLY ONE ×2 (11:50→11:55)
== END 2018-10-12 09:57 | disposition home or self-care (01) ==
LOC: ER 11:27 → INTOOBSV 14:21 → MED 14:21
PROVIDERS: ADMIT Urology; ATTEND Urology
DX: N20.0 Calculus of kidney (principal); R10.9 Unspecified abdominal pain; R31.9 Hematuria, unspecified; Z23 Encounter for immunization
CPT/HCPCS: 74018; 81001; 82365; 85025; 88300; 90471; 90674; 96361; 96374; 96375; 99284; G0378; J1956; J2270; J2405; J2550; J7030; J7120; 82040; 82247; 82310; 82374; 82435; 82565; 82947; 84075; 84132; 84155; 84295; 84450; 84460; 84520; J1100; J2001; J2704; J3010; J3490

== ENCOUNTER → 2018-10-14 | Outpatient (CLI) | payer OTHER ==
[2018-10-12 08:55] VITALS: BMI 31.9
[~2018-10-14] MED LIST changes: +IBUP600T22 PO
== END ==
LOC: LAB 08:04
PROVIDERS: ATTEND Urology
DX: N20.0 Calculus of kidney (principal)
CPT/HCPCS: 36415; 82310; 82374; 82435; 82565; 82947; 84132; 84295; 84520

== ENCOUNTER → 2018-10-27 | Outpatient (CLI) | payer OTHER ==
[2018-10-12 08:55] VITALS: BMI 31.9
== END ==
LOC: LAB 10:26
PROVIDERS: ATTEND Urology
DX: N20.0 Calculus of kidney (principal); R74.8 Abnormal levels of other serum enzymes
CPT/HCPCS: 36415; 82310; 82374; 82435; 82565; 82947; 84132; 84295; 84520

== ENCOUNTER → 2018-11-17 | Outpatient (CLI) | payer OTHER ==
[2018-10-12 08:55] VITALS: BMI 31.9
[~2018-11-17] MED LIST changes: +CIPR-214 PO
== END ==
LOC: LAB 11:06
PROVIDERS: ATTEND Urology
DX: N49.1 Inflammatory disorders of spermatic cord, tunica vaginalis and vas deferens (principal)
CPT/HCPCS: 88302